=== PATIENT | female | born 1955 | race Caucasian/White ===

== ENCOUNTER → 2018-02-17 | Outpatient (CLI) | payer BC ==
[~2018-02-17] MED LIST: IOPAMIDOL (ISOVUE 370) 100 ML BTL IV ONE
== END ==
LOC: CIMAGING 09:05
PROVIDERS: ATTEND Psychiatry & Neurology Neurology
DX: R51 Headache (principal); I79.8 Other disorders of arteries, arterioles and capillaries in diseases classified elsewhere; Z86.73 Personal history of transient ischemic attack (TIA), and cerebral infarction without residual deficits
CPT/HCPCS: 70496-PO; 70498-PO; Q9967